=== PATIENT | male | born 1970 | race Caucasian/White ===

== ENCOUNTER 2020-07-21 03:52 | Emergency (ER) | payer BC, OTHER ==
[2020-07-21] MEDS ORDERED: Morphine 4 MG/ML VIAL ONE ×3 (04:19→05:24)
[2020-07-21] MEDS ORDERED: Ondansetron PF 4 MG/2 ML Vial ONE (04:20)
[2020-07-21 04:28] LABS: #Basophils 0.1 10x3/uL (0.0-0.2); #Monocytes 1.1 10x3/uL (0.0-1.1); %Basophils 0.3 % (0.0-2.0); %Eosinophils 0.3 % (0.0-6.0); %Lymphocytes 17.4 % (18.0-47.0); %Monocytes 7.4 % (0.0-10.0); %Neutrophils 73.9 % (40.0-75.0); Hemoglobin 16.5 g/dL (13.5-17.5); Mean Corpuscular HGB CONC 34.7 g/dL (32.0-36.0); Mean Corpuscular Hemoglobin 31.1 pg (27.0-33.0); Mean Corpuscular Volume 89.6 fl (81.2-95.1); Mean Platelet Volume 9.3 fl (7.4-10.4); Platelet Count 327 10x3/uL (150-450); RBC Distribution Width 11.8 % (11.5-14.5); White Blood Cell (WBC) Count 14.9 10x3/uL (3.5-10.5)
[2020-07-21 04:42] LABS: ALT (SGPT) 44 U/L (8-55); AST (SGOT) 23 U/L (5-34); Albumin 4.4 g/dL (3.5-5.0); Alkaline Phosphatase 135 U/L (40-110); Anion Gap 14 mmol/L (10-20); BUN (Urea Nitrogen) 11 mg/dL (8.9-20.6); Bilirubin, Total 0.8 mg/dL (0.2-1.2); Calc. Creatinine Clearance 0 mL/min (70-130); Calcium 9.7 mg/dL (7.8-10.44); Carbon Dioxide 25 mmol/L (22-29); Chloride 100 mmol/L (98-107); Globulin 3.3 g/dL (2.4-3.5); Glucose 142 mg/dL (70-105); Lipase 26 U/L (8-78); Potassium 4.5 mmol/L (3.5-5.1); Protein, Total 7.7 g/dL (6.0-8.3); Sodium 134 mmol/L (136-145)
[2020-07-21] MEDS ORDERED: Cefepime 2 GM VIAL ONE (04:45)
[2020-07-21] MEDS ORDERED: Ketorolac Tromethamine 30 MG/ML VIAL ONE (05:24)
[2020-07-21 07:51] LABS: Lactic Acid 0.9 mmol/L (0.5-2.2)
== END 2020-07-21 08:47 | disposition home or self-care (01) ==
LOC: CSHERS 03:52
DX: K57.32 Diverticulitis of large intestine without perforation or abscess without bleeding (principal); F17.210 Nicotine dependence, cigarettes, uncomplicated; Z79.899 Other long term (current) drug therapy
CPT/HCPCS: 36415; 74177; 80053; 83605; 83690; 85025; 87040; 96365; 96366; 96367; 96375; 96376; J0692; J1885; J2270; J2405; J3370